=== PATIENT | female | born 1995 | race Caucasian/White ===

== ENCOUNTER 2017-07-16 11:24 | Emergency (ER) | payer OTHER ==
[~2017-07-16] VITALS: Ht 162.6 cm; Wt 61.4 kg
[~2017-07-16 11:24] MED LIST: BEYAZ1 TAB PO
[2017-07-16 11:40] VITALS: BP 128/83; TEMP 98.6
[2017-07-16] MEDS ORDERED: NAPROSYN500 MG PO (12:07)
[2017-07-16] MEDS ORDERED: FLEXERIL5 MG PO (12:08)
[2017-07-16] MEDS ORDERED: NORCO 325 MG-51 TAB PO (12:54)
[2017-07-16 13:06] VITALS: PULSE 88
== END 2017-07-16 13:06 | disposition home or self-care (01) ==
LOC: COL.ER 11:24
DX: S39.012A Strain of muscle, fascia and tendon of lower back, initial encounter (principal); X50.0XXA Overexertion from strenuous movement or load, initial encounter